=== PATIENT | male | born 1970 | race African-American/Black ===

== ENCOUNTER 2021-05-11 10:58 | Emergency (ER) | payer OTHER, SELFPAY ==
[2021-05-11 11:23] VITALS: BP 135/78; PULSE 65; RESP 20; TEMP 36.6; O2SAT 100
--- NOTE | 2021-05-11 11:44 | ED.URI ---
HPI - URI/Sore Throat General Chief Complaint: Upper Respiratory Infection Stated Complaint: Sore Throat Time Seen by Provider: 05/11/21 11:25 Source: patient, RN notes reviewed and old records reviewed Mode of arrival: ambulatory Limitations: no limitations History of Present Illness HPI Narrative: 50-year-old male who presents to [facility] with complaints of sore throat with progressively worsening symptoms since . Patient reports on he also did have a headache and some body aches, has also had some chills but no known fever. Patient reports he has not had COVID vaccinations or any flu shot.Patient has pain and enlarged lymph node to his left neck with white lesions on swollen left tonsil. Patient has no complaints of cough or sinus congestion or drainage, no nausea or vomiting or any chest pain or shortness of breath.He reports he does have some left ear discomfort, pressure. MD elicited complaint: sore throat and other (headache and body aches on ) Onset (ago): day(s) (4) Consistency: progressively worsening Severity: severe Related Data Allergies Allergy/AdvReac Type Severity Reaction Status Date / Time Sulfa (Sulfonamide Allergy Unknown Other Verified 05/11/21 11:34 Antibiotics) formaldehyde AdvReac Severe Anaphylaxis Verified 05/11/21 11:33 Review of Systems Review of Systems: CONSTITUTIONAL: Denies fever,positive for chills, or sweats on only EYES: Denies visual changes, redness, or discharge. ENT: Denies rhinorrhea, congestion,positive for sore throat, left ear otalgia. CARDIOVASCULAR: Denies chest pain, palpitations, or edema. RESPIRATORY: Denies cough or dyspnea. GASTROINTESTINAL: Denies abdominal pain, nausea, vomiting, or diarrhea. GENITOURINARY: Denies dysuria or hematuria. SKIN: Denies rash or itching. MUSCULOSKELETAL: Denies back pain, joint pain, some body aches on NEUROLOGIC: Denies headache, numbness, or weakness. PSYCHIATRIC: Denies anxiety or depression. All systems reviewed & are unremarkable except as noted in HPI and below PMFSH Past Medical History Medical History (Updated 05/11/21 @ 12:11 by Keila Novak NP) G6PD deficiency Surgical History Surgical History (Updated 05/11/21 @ 12:09 by Keila Novak NP) S/P wisdom tooth extraction Family History Family History (Updated 05/11/21 @ 12:09 by Keila Novak NP) Mother Leukemia Social History Social History (Updated 05/11/21 @ 12:09 by Keila Novak NP) Smoking status: Never smoker Alcohol intake: never Substance use: never Living arrangements: with family Gender identity (if verbalized by the patient): Male Comments At time of signature, agree with nursing past medical, surgical, social and family history. There is no relevant family history pertinent to the presenting complaint Exam Narrative: GENERAL: Well-appearing, well-nourished, and in no acute distress. HEAD: Normocephalic, atraumatic. EYES: PERRLA and EOMI. ENT: Nares clear, no rhinorrhea or epistaxis. Mucous membranes moist. NECK: Supple. CHEST: Clear to auscultation. No respiratory distress. HEART: Regular rate and rhythm. No murmur heard. Normal peripheral pulses. ABDOMEN: Soft, nontender, nondistended, normal active bowel sounds. EXTREMITIES: Normal range of motion. No edema. SKIN: Warm, dry, no rash. NEURO: No focal deficits. Alert and oriented x3. Course Course Level of Care: Express Care Visit Vital Signs Vital signs: Vital Signs Temperature 36.6 C 05/11/21 11:23 Pulse Rate 65 05/11/21 11:23 Respiratory Rate 20 05/11/21 11:23 Blood Pressure 135/78 05/11/21 11:23 Pulse Oximetry 100 05/11/21 11:23 Temperature 36.6 C 05/11/21 11:23 Pulse Rate 65 05/11/21 11:23 Respiratory Rate 20 05/11/21 11:23 Blood Pressure 135/78 05/11/21 11:23 Pulse Oximetry 100 05/11/21 11:23 MDM - URI/Sore Throat Differential Diagnosis Differential diagnosis: Likely
== END 2021-05-11 12:15 | disposition home or self-care (01) ==
PROVIDERS: Emergency Provider Registered Nurse
DX: J03.90 Acute tonsillitis, unspecified (principal)
CPT/HCPCS: 87081; 87426; 87880; 99203; C9803; G0463